=== PATIENT | female | born 1980 | race American Indian/Alaskan Native ===

== ENCOUNTER 2017-02-06 21:16 | Emergency (ER) | payer MEDICAID ==
[2017-02-06 22:06] VITALS: BP 146/75
[2017-02-07 00:16] LABS: Basophils % (Auto) 0.2 % (0.0-1.8); Hematocrit 37.7 % (30.3-42.9); Hemoglobin 12.4 gm/dl (10.1-14.3); Mean Corpuscular HGB Conc 33 % (30-34); Mean Corpuscular Hemoglobin 31 pg (28-32); Mean Corpuscular Volume 95 fl (79-97); Platelet Count 236 K/mm3 (140-440); Red Blood Count 3.98 M/mm3 (3.65-5.03); Red Cell Distribution Width 17.3 % (13.2-15.2); White Blood Count 15.2 K/mm3 (4.5-11.0)
[2017-02-07 00:31] LABS: Bilirubin,Urine NEG (Negative); Blood,Urine MOD (Negative); Ketones,Urine NEG (Negative); Leukocyte Esterase,Urine NEG (Negative); Nitrite,Urine NEG (Negative); Protein,Urine <15 mg/dL mg/dL (Negative); Urobilinogen,Urine < 2.0 mg/dL (<2.0)
--- NOTE | 2017-02-07 01:24 | Ultrasound Report ---
FINAL REPORT PROCEDURE: US OB TRANSVAGINAL TECHNIQUE: Real-time transvaginal sonography of the uterus, placenta, amniotic fluid, adnexa, and fetus was performed with image documentation. Measurements were obtained to determine age/size. M-mode Doppler was used to document heartbeat. CPT 95612 HISTORY: preg, vag bleeding COMPARISON: No prior studies are available for comparison. FINDINGS: CRL: 53.9mm, which corresponds to a gestational age of: 12weeks, 0 days. Yolk Sac: Normal. Embryonic Cardiac Activity: 169 beats per minute Gestational Sac: Normal. Right Ovary: Normal. Left Ovary: Normal. Estimated delivery date: 08/22/2017 Comment: Complete anatomic survey at 18-20 weeks suggested. IMPRESSION: 1. Single living intrauterine gestation at approximately 12 weeks 2. EDC by US August 22, 2017.
--- NOTE | 2017-02-07 01:29 | Ultrasound Report ---
FINAL REPORT PROCEDURE: US OB transabdominal TECHNIQUE: Real-time transabdominal sonography of the uterus, placenta, amniotic fluid, adnexa, and fetus was performed with image documentation. Measurements were obtained to determine age/size. M-mode Doppler was used to document heartbeat. HISTORY: preg, vag bleeding COMPARISON: No prior studies are available for comparison. FINDINGS: CRL: 53.9mm, which corresponds to a gestational age of: 12weeks, 0 days. Yolk Sac: Normal. Embryonic Cardiac Activity: 169 beats per minute Gestational Sac: Normal. Right Ovary: Normal. Left Ovary: Normal. Estimated delivery date: 08/22/2017 Comment: Complete anatomic survey at 18-20 weeks suggested. IMPRESSION: 1. Single living intrauterine gestation at approximately 12 weeks 2. EDC by US August 22, 2017.
== END 2017-02-07 03:24 | disposition left against medical advice (07) ==
LOC: ED 21:16
DX: O26.851 Spotting complicating pregnancy, first trimester (principal); Z3A.12 12 weeks gestation of pregnancy; Z53.21 Procedure and treatment not carried out due to patient leaving prior to being seen by health care provider
CPT/HCPCS: 36415; 76801; 76817; 81001; 84702; 85025; 86850; 86900; 86901

== ENCOUNTER 2017-03-27 19:17 | Emergency (ER) | payer MEDICAID ==
[2017-03-27 19:38] VITALS: BP 128/65
[2017-03-27 20:04] LABS: Basophils % (Auto) 0.2 % (0.0-1.8); Eosinophils % (Auto) 0.8 % (0.0-4.3); Hematocrit 37.6 % (30.3-42.9); Hemoglobin 12.5 gm/dl (10.1-14.3); Mean Corpuscular HGB Conc 33 % (30-34); Mean Corpuscular Hemoglobin 31 pg (28-32); Mean Corpuscular Volume 94 fl (79-97); Platelet Count 210 K/mm3 (140-440); White Blood Count 14.3 K/mm3 (4.5-11.0)
[2017-03-27 20:21] LABS: Alanine Aminotransferase 12 units/L (7-56); Albumin 3.5 g/dL (3.9-5); Albumin/Globulin Ratio 0.9 %; Alkaline Phosphatase 67 units/L (35-129); Anion Gap 16 mmol/L; BUN/Creatinine Ratio 6.66; Bilirubin,Total < 0.20 mg/dL (0.1-1.2); Blood Urea Nitrogen 4 mg/dL (7-17); Carbon Dioxide 23 mmol/L (22-30); Chloride 101.6 mmol/L (98-107); Glucose 104 mg/dL (65-100); Potassium 3.8 mmol/L (3.6-5.0); Sodium 137 mmol/L (137-145); Total Protein 7.4 g/dL (6.3-8.2)
[2017-03-27 21:03] LABS: Bilirubin,Urine NEG (Negative); Blood,Urine NEG (Negative); Ketones,Urine NEG (Negative); Leukocyte Esterase,Urine NEG (Negative); Mucus,Urine FEW /HPF; Nitrite,Urine NEG (Negative); Urobilinogen,Urine < 2.0 mg/dL (<2.0)
--- NOTE | 2017-03-27 22:33 | Ultrasound Report ---
FINAL REPORT EXAM: US OB \T\gt; = 14 WK FETUS ADD GEST HISTORY: / LOWER ABD NUMBNESS TECHNIQUE: Real-time sonography was performed of the gravid uterus and images are submitted for interpretation. PRIORS: 2016 FINDINGS: There is a normal-appearing fetus in the uterus in a breech presentation. The placenta is posterior and the os is clear. The amniotic fluid index is normal at 7.2 cm. The heart is beating at a rate of 162 beats per minute. Biometric measurements give an estimated gestational age of 18 weeks 0 days. structures identified include the spine, bladder, cord insertion, stomach, kidneys and diaphragm. The head was scanned but the anatomy was not well demonstrated due to technical factors. IMPRESSION: 1. Single, live intrauterine gestation, estimated gestational age 18 weeks 0 days for an estimated date of confinement of 08/28/2017. Estimated date of confinement based on the comparison ultrasound is 08/22/2017. There has been appropriate interval growth. 2. Breech presentation
--- NOTE | 2017-03-28 14:00 | ED Elopement Review ---
ED Pt Elopement review - Results review Lab results: Laboratory Tests 03/27/17 03/27/17 03/27/17 19:42 19:42 19:42 WBC 14.3 H RBC 4.00 Hgb 12.5 Hct 37.6 MCV 94 MCH 31 MCHC 33 RDW 16.0 H Plt Count 210 Lymph % (Auto) 19.5 Ness % (Auto) 8.0 H Eos % (Auto) 0.8 Baso % (Auto) 0.2 Lymph # 2.8 Ness # 1.1 H Eos # 0.1 Baso # 0.0 Seg Neutrophils % 71.5 H Seg Neutrophils # 10.2 H Sodium 137 Potassium 3.8 Chloride 101.6 Carbon Dioxide 23 Anion Gap 16 BUN 4 L Creatinine 0.6 L Estimated GFR > 60 BUN/Creatinine Ratio 6.66 Glucose 104 H Calcium 9.0 Total Bilirubin < 0.20 AST 17 ALT 12 Alkaline Phosphatase 67 Total Protein 7.4 Albumin 3.5 L Albumin/Globulin Ratio 0.9 HCG, Quant 57159 H Urine Color Urine Turbidity Urine pH Ur Specific [place] Urine Protein Urine Glucose (UA) Urine Ketones Urine Blood Urine Nitrite Urine Bilirubin Urine Urobilinogen Ur Leukocyte Esterase Urine WBC (Auto) Urine RBC (Auto) U Epithel Cells (Auto) Urine Mucus 03/27/17 20:31 WBC RBC Hgb Hct MCV MCH MCHC RDW Plt Count Lymph % (Auto) Ness % (Auto) Eos % (Auto) Baso % (Auto) Lymph # Ness # Eos # Baso # Seg Neutrophils % Seg Neutrophils # Sodium Potassium Chloride Carbon Dioxide Anion Gap BUN Creatinine Estimated GFR BUN/Creatinine Ratio Glucose Calcium Total Bilirubin AST ALT Alkaline Phosphatase Total Protein Albumin Albumin/Globulin Ratio HCG, Quant Urine Color Yellow Urine Turbidity Clear Urine pH 7.0 Ur Specific [place] 1.016 Urine Protein 100 mg/dl Urine Glucose (UA) 150 Urine Ketones Neg Urine Blood Neg Urine Nitrite Neg Urine Bilirubin Neg Urine Urobilinogen < 2.0 Ur Leukocyte Esterase Neg Urine WBC (Auto) 2.0 Urine RBC (Auto) 5.0 U Epithel Cells (Auto) 8.0 Urine Mucus Few - Call Back decision Pt Call Back Decision: No action required
== END 2017-03-28 00:01 | disposition left against medical advice (07) ==
LOC: ED 19:17
DX: O26.892 Other specified pregnancy related conditions, second trimester (principal); R20.0 Anesthesia of skin; R42 Dizziness and giddiness; R06.02 Shortness of breath; Z3A.16 16 weeks gestation of pregnancy
CPT/HCPCS: 36415; 76805; 76810; 80053; 81001; 84702; 85025

== ENCOUNTER 2017-05-11 15:57 | Outpatient (CLI) | payer MEDICAID ==
[2017-05-11] MEDS ORDERED: LACTATED RINGERS 500 ML IV ONE (16:07)
[2017-05-11 16:48] VITALS: BP 118/61
[2017-05-11 17:16] LABS: Bacteria,Urine 3+ /HPF (Negative); Bilirubin,Urine NEG (Negative); Blood,Urine NEG (Negative); Ketones,Urine TR mg/dL (Negative); Leukocyte Esterase,Urine TR (Negative); Mucus,Urine 2+ /HPF; Nitrite,Urine NEG (Negative)
[2017-05-11 17:25] LABS: Protein,Urine >500 mg/dL (Negative)
[2017-05-11] MEDS ORDERED: MACROBID PO ONE (18:37)
[2017-05-11] MEDS ORDERED: TYLENOL PO ONE (19:42)
--- NOTE | 2017-05-12 09:54 | Ultrasound Report ---
BIOPHYSICAL PROFILE: 2 - breathing movements 2 - movements 2 - posture and tone 2 - Qualitative amniotic fluid volume 8 - TOTAL SCORE OF POSSIBLE 8 Heart Rate (bpm) 155 Gestation: Single Position: Cephalic Heart Rate: 158 BPM Cervical length: 3.4 cm (Normal > 3 cm)
== END 2017-05-11 19:54 | disposition home or self-care (01) ==
LOC: TRG 15:57
PROVIDERS: ATTEND Obstetrics & Gynecology Gynecology
DX: O99.332 Smoking (tobacco) complicating pregnancy, second trimester (principal); O47.02 False labor before 37 completed weeks of gestation, second trimester; Z3A.25 25 weeks gestation of pregnancy
CPT/HCPCS: 76815; 76819; 81001

== ENCOUNTER 2017-07-02 14:44 | Outpatient (CLI) | payer MEDICAID ==
[2017-07-02 15:21] VITALS: BP 120/53
[2017-07-02] MEDS ORDERED: LACTATED RINGERS 500 ML IV ONE (18:02)
--- NOTE | 2017-07-03 07:44 | Ultrasound Report ---
ULTRASOUND BIOPHYSICAL PROFILE: History: well being Technique: Transabdominal ultrasound with Doppler interrogation. 2 - breathing movements 2 - movements 2 - posture and tone 2 - Qualitative amniotic fluid volume 8 - TOTAL SCORE OF POSSIBLE 8 Heart Rate (bpm) 136
== END 2017-07-02 17:55 | disposition home or self-care (01) ==
LOC: TRG 14:44
PROVIDERS: ATTEND Obstetrics & Gynecology
DX: O09.523 Supervision of elderly multigravida, third trimester (principal); O99.333 Smoking (tobacco) complicating pregnancy, third trimester; O47.03 False labor before 37 completed weeks of gestation, third trimester; Z3A.32 32 weeks gestation of pregnancy
CPT/HCPCS: 59025; 76819

== ENCOUNTER 2017-08-13 18:52 | Outpatient (CLI) | payer MEDICAID ==
[2017-08-13 19:28] VITALS: BP 120/62
[2017-08-13] MEDS ORDERED: VISTARIL PO ONE (20:30)
== END 2017-08-13 20:40 | disposition home or self-care (01) ==
LOC: TRG 18:52
PROVIDERS: ATTEND Obstetrics & Gynecology
DX: O09.523 Supervision of elderly multigravida, third trimester (principal); O99.333 Smoking (tobacco) complicating pregnancy, third trimester; Z3A.38 38 weeks gestation of pregnancy
CPT/HCPCS: Q0177

== ENCOUNTER 2017-08-17 22:03 | Outpatient (CLI) | payer MEDICAID ==
[2017-08-17 22:17] VITALS: BP 122/71
[2017-08-17] MEDS ORDERED: VISTARIL PO ONE (23:39)
== END 2017-08-18 00:30 | disposition home or self-care (01) ==
LOC: TRG 22:03
PROVIDERS: ATTEND Obstetrics & Gynecology
DX: O09.523 Supervision of elderly multigravida, third trimester (principal); O99.333 Smoking (tobacco) complicating pregnancy, third trimester; O48.0 Post-term pregnancy; Z3A.49 Greater than 42 weeks gestation of pregnancy
CPT/HCPCS: Q0177